=== PATIENT | female | born 1945 | race Caucasian/White ===

== ENCOUNTER → 2018-06-08 12:16 | Outpatient (CLI) | payer OTHER, SELFPAY ==
[2018-06-08 13:50] LABS: Free T4, Direct Thyroxine 1.35 ng/dL (0.78-2.19)
[2018-06-08 14:04] LABS: Thyroid Stimulating Hormone 2.89 uIU/mL (0.47-4.68)
== END ==
PROVIDERS: PCP Internal Medicine; Visit Provider Internal Medicine
DX: E03.9 Hypothyroidism, unspecified (principal)
CPT/HCPCS: 36415; 84439; 84443

== ENCOUNTER 2018-07-01 13:19 | Day surgery (SDC) | payer OTHER, SELFPAY ==
[2018-07-01 13:32] VITALS: BMI 23.3
[2018-07-01 13:41] VITALS: BP 143/68; PULSE 62; RESP 16; TEMP 36.3; O2SAT 100
[2018-07-01] MEDS: SODIUM CHLORIDE 0.9% 1,000 ML 200 ML IV ×2 (13:46→14:40)
[2018-07-01] MEDS: MIDAZOLAM 5 MG/5 ML VIAL IV (14:22)
[2018-07-01] MEDS: fentaNYL 250 MCG/5 ML INJ IV (14:23)
[2018-07-01 14:44] VITALS: BP 93/59; PULSE 63; RESP 16; TEMP 37.6; O2SAT 96
[2018-07-01 15:10] VITALS: BP 98/62; PULSE 72; RESP 16; O2SAT 98
[2018-07-01 15:22] VITALS: BP 112/63; PULSE 56; RESP 16; O2SAT 99
[2018-07-01 15:35] VITALS: BP 100/60; PULSE 56; RESP 16; O2SAT 99
--- NOTE | 2018-07-01 15:49 | SUR.PHASEII ---
Although initial BP 140/70, and subsequent pressures tending to be 100-110/60, the patient voices other than some drowiness feeling okay. Able to both stand and dress self without problems. Told to change positions slowly and consider napping once home.
--- NOTE | 2018-07-01 15:52 | SUR.PHASEII ---
Addendum: Did receive 1500ml of IVF.
--- NOTE | 2018-07-01 16:01 | OP_ITS ---
DATE OF SERVICE: 07/01/2018 PREOP DIAGNOSIS: History of colon polyps. POSTOP DIAGNOSIS: Normal colonoscopy to the cecum. No polyps, tumors, or ulcerations. PROCEDURE: Total colonoscopy to the cecum. SURGEON: Shreyas Coates MD DESCRIPTION OF PROCEDURE: Patient was properly identified during surgical pause, given conscious sedation consisting of 4 mg of Versed and 150 mcg of fentanyl throughout the procedure. The flexible fiber-optic colonoscope inserted transanally to the cecum. Very careful inspection of the entire mucosa revealed no polyps, no tumors, no ulcerations, no other significant abnormalities. The procedure was very well tolerated. Cathy Meyers - /alicja/ doc#: [id number]/job#: [id number] dd: 07/01/2018 14:39:00 dt: 07/01/2018 15:52:00 DICTATING MD/COPIES TO: Shreyas Coates MD COPIES MNE: RASHEED
--- NOTE | 2018-07-08 11:10 | HP_ITS ---
DATE OF SERVICE: 06/30/2018 PREOPERATIVE HISTORY AND PHYSICAL HISTORY OF PRESENT ILLNESS: She's coming in for a screening colonoscopy tomorrow, July 01, 2018. A 73-year-old white female patient with no colorectal symptoms. Denies hematochezia or melena, is coming in for a screening colonoscopy. She does have history with benign colon polyps. She gets a 5-year followup colonoscopy, and that's what's going to happen on this occasion. PAST MEDICAL HISTORY: She does have a history of benign colon polyps in the past. She has had a total thyroidectomy for thyroid cancer back in the 1980s and, of course, take thyroid hormone replacement therapy. Has no other significant medical or surgical history. Denies hypertension, diabetes, or heart disease. CURRENT MEDICATIONS: Thyroxine 112 mcg a day. She takes various over-the- counter, coQ10, fish oil, various list of vitamins. SOCIAL HISTORY: Denies tobacco use. ALLERGIES: NO KNOWN MEDICAL ALLERGIES. REVIEW OF SYSTEMS: Denies exertional chest pain or unusual shortness of breath. GI: As mentioned in HPI. NEUROENDOCRINE: As in the past history, with a history of thyroid cancer approximately 40 years ago. No sign of recurrence. NEUROLOGIC: Negative for strokes, TIAs, or seizures. PHYSICAL EXAMINATION VITAL SIGNS: Blood pressure 140/80, heart rate in the 60s. HEENT: Ears, nose, and throat are normal. NECK: No adenopathy. CHEST: Lungs are clear. HEART: Regular rhythm. No murmur. ABDOMEN: Soft. No organomegaly. No tenderness. RECTAL: Exam is deferred. Will be done at time of colonoscopy. DIAGNOSIS: History of colon polyps, here for repeat screening colonoscopy. Cathy Meyers /alicja/hannah doc#: [id number]/job#: [id number] dd: 06/30/2018 13:03:00 dt: 07/01/2018 04:51:00 DICTATING MD/COPIES TO: Shreyas Coates MD COPIES MNChristine: RASHEED
== END 2018-07-01 15:42 | disposition home or self-care (01) ==
LOC: ENDO 13:20
PROVIDERS: Surgery; Visit Provider Specialist
PROC: 0DJD8ZZ Inspection of Lower Intestinal Tract, Via Natural or Artificial Opening Endoscopic (ICD-10-PCS; CPT 45378; principal; 2018-07-01 14:45)
DX: Z86.010 Personal history of colon polyps (principal)
CPT/HCPCS: G0105; J2250; J3010

== ENCOUNTER → 2019-01-05 15:07 | Outpatient (CLI) | payer OTHER, SELFPAY ==
--- NOTE | 2019-01-05 | DI.RAD.S_ITS ---
PROCEDURE: XR HAND LT MIN 3V INDICATIONS: CONTUSION OF LEFT HAND TECHNIQUE: 4 views of the hand(s) acquired. COMPARISON: None. FINDINGS: Bones: No fractures or dislocations. Carpal bones are normally aligned. No suspicious bony lesions. First CMC and triscaphe joint degeneration. Partially visualized is a radial plate and screw fixation. Chronic ossicle at the tip of the ulnar styloid. Diffuse interphalangeal joint degeneration. Soft tissues: No suspicious soft tissue calcifications. IMPRESSION: First CMC and triscaphe joint degeneration Corticated loose body or fracture fragment adjacent to the ulnar styloid. Dictated by: Jose Jefferson M.D. on 01/05/2019 at 16:25 Approved by: Jose Jefferson M.D. on 01/05/2019 at 16:27
== END ==
PROVIDERS: Visit Provider Physician Assistant
DX: S60.222A Contusion of left hand, initial encounter (principal); M18.12 Unilateral primary osteoarthritis of first carpometacarpal joint, left hand; M19.032 Primary osteoarthritis, left wrist
CPT/HCPCS: 73130

== ENCOUNTER → 2019-01-21 09:20 | Outpatient (CLI) | payer OTHER, SELFPAY | PROVIDERS: PCP Student in an Organized Health Care Education/Training Program; Visit Provider Physician Assistant | DX: M85.851 Other specified disorders of bone density and structure, right thigh (principal); Z78.0 Asymptomatic menopausal state; E07.9 Disorder of thyroid, unspecified | CPT/HCPCS: 77080 ==

== ENCOUNTER → 2019-03-11 15:40 | Outpatient (CLI) | payer OTHER, SELFPAY ==
--- NOTE | 2019-03-11 | DI.US.S_ITS ---
PROCEDURE: US PERIPH VENOUS LOW EXTREM BI INDICATIONS: PAIN IN LOWER EXTREMITIES TECHNIQUE: Real-time imaging, as well as color and pulse Doppler interrogation, were performed of the deep veins of both legs from the inguinal ligament to the popliteal fossa. COMPARISON: None. FINDINGS: Right: The common femoral, femoral and popliteal veins are normally compressible, and free of intraluminal thrombus. Color and pulse Doppler demonstrate normal phasic intravascular flow. There is normal augmentation response to distal compression maneuver. Left: The common femoral, femoral and popliteal veins are normally compressible, and free of intraluminal thrombus. Color and pulse Doppler demonstrate normal phasic intravascular flow. There is normal augmentation response to distal compression maneuver. IMPRESSION: No deep venous thrombosis identified within either the left or right lower extremities. Dictated by: Gianni AGUILAR Interpreted: Duong Cunha MD on 03/11/2019 at 16:58 Approved by: Duong Cunha M.D. on 03/11/2019 at 17:31
== END ==
PROVIDERS: PCP Internal Medicine; Visit Provider Internal Medicine
DX: M79.605 Pain in left leg (principal); M79.604 Pain in right leg
CPT/HCPCS: 93970

== ENCOUNTER → 2019-03-21 08:21 | Outpatient (CLI) | payer OTHER, SELFPAY ==
[2019-03-21 10:01] LABS: BUN Creatinine Ratio 23.8 (6-22); Blood Urea Nitrogen 19 mg/dL (7-17); Estimated Glomerular Filt Rate > 60.0 mL/min (>60)
== END ==
PROVIDERS: PCP Internal Medicine; Visit Provider Internal Medicine
DX: M81.0 Age-related osteoporosis without current pathological fracture (principal)
CPT/HCPCS: 36415; 82565; 84520

== ENCOUNTER → 2020-04-17 14:38 | Outpatient (CLI) | payer MEDICARE, SELFPAY ==
[2020-04-17 15:39] LABS: BUN Creatinine Ratio 19.1 (6-22); Blood Urea Nitrogen 17 mg/dL (7-17); Estimated Glomerular Filt Rate > 60.0 mL/min (>60)
== END ==
PROVIDERS: PCP Internal Medicine; Referring Provider Internal Medicine; Visit Provider Internal Medicine
DX: M81.0 Age-related osteoporosis without current pathological fracture (principal)
CPT/HCPCS: 36415; 82565; 84520

== ENCOUNTER → 2020-05-01 15:00 | Oncology outpatient (ONC) | payer MEDICARE, OTHER, SELFPAY ==
[2019-03-28 14:35] VITALS: BP 158/79; PULSE 71; RESP 16; TEMP 36.6; O2SAT 99
[2019-03-28] MEDS: ZOLEDRONIC ACID 4 MG in SODIUM CHLORIDE 0.9% 100 ML 420 ML IV (14:54)
[2020-05-01] MEDS: ZOLEDRONIC ACID 4 MG in SODIUM CHLORIDE 0.9% 100 ML 315 ML IV (15:36)
[2020-05-01 16:01] VITALS: BP 142/75; PULSE 63; RESP 16; TEMP 36.7; O2SAT 100
== END ==
PROVIDERS: PCP Internal Medicine; Visit Provider Student in an Organized Health Care Education/Training Program
DX: M81.0 Age-related osteoporosis without current pathological fracture (principal)
CPT/HCPCS: 96365; J3489

== ENCOUNTER → 2021-01-18 13:59 | Outpatient (CLI) | payer MEDICARE, SELFPAY | PROVIDERS: PCP Student in an Organized Health Care Education/Training Program; Referring Provider Student in an Organized Health Care Education/Training Program; Visit Provider Student in an Organized Health Care Education/Training Program | DX: M85.851 Other specified disorders of bone density and structure, right thigh (principal); Z78.0 Asymptomatic menopausal state; E07.9 Disorder of thyroid, unspecified | CPT/HCPCS: 77080 ==

== ENCOUNTER → 2023-07-03 09:56 | Outpatient (CLI) | payer OTHER, SELFPAY ==
--- NOTE | 2023-07-03 | DI.RAD.S_ITS ---
Bone Density Report Name: REX AREVALO Age: 78 Sex: Female Ethnicity: White Date of : 1945 Indication: osteopenia; Referring Provider: ROSY EGAN Study: Bone densitometry was performed. Exam Date: July 03, 2023 Accession number: [id number] Bone Density: Region BMD T-score Z-score Classification AP Spine(L1-L4) 1.166 1.1 3.6 Normal Femoral Neck (Left) 0.566 -2.5 -0.4 Osteoporosis Total Hip (Left) 0.747 -1.6 0.3 Osteopenia Femoral Neck (Right) 0.557 -2.6 -0.5 Osteoporosis Total Hip (Right) 0.706 -1.9 -0.1 Osteopenia Total Hip Mean 0.727 -1.8 0.1 Osteopenia World Health Organization criteria for BMD impression classify patients as: Normal (T-score at or above -1.0), Osteopenia (T-score between -1.0 and -2.5), or Osteoporosis (T-score at or below -2.5). 10-year Fracture Risk: FRAX not reported because: Some T-score for Spine Total or Hip Total or Femoral Neck at or below -2.5 Previous Exams: -- Region Exam Age BMD T-score BMD Change BMD Change Date g/cm2 vs Baseline vs Previous -- AP Spine (L1-L4) 07/03/2023 78 1.166 1.1 0.078 (7.2%)# -0.026 (-2.2%)# 01/18/2021 75 1.193 1.3 0.105 (9.6%)* -0.016 (-1.3%) 01/21/2019 73 1.208 1.5 0.120 (11.1%)* 0.120 (11.1%)* 06/16/2016 71 1.088 0.4 Total Hip(Left) 07/03/2023 78 0.747 -1.6 0.011 (1.5%)# -0.005 (-0.6%)# 01/18/2021 75 0.752 -1.6 0.016 (2.2%) 0.009 (1.2%) 01/21/2019 73 0.743 -1.6 0.007 (0.9%) 0.007 (0.9%) 06/16/2016 71 0.736 -1.7 Total Hip(Right) 07/03/2023 78 0.706 -1.9 0.036 (5.4%)# 0.008 (1.2%)# 01/18/2021 75 0.698 -2.0 0.028 (4.2%)* 0.011 (1.6%) 01/21/2019 73 0.687 -2.1 0.017 (2.6%) 0.017 (2.6%) 06/16/2016 71 0.670 -2.2 -- *Denotes significance at 95% confidence level, LSC for AP Spine = 0.022 g/cm2, LSC for Total Hip = 0.027 g/cm2 # Denotes dissimilar scan types or analysis methods Impression: The patient has osteoporosis, based on the Right Femoral Neck T-score. No significant bone loss was observed. Discussion: INCREASED RISK OF FRACTURE. BONE DENSITY IS UNDESIRABLY LOW AT ONE OR MORE SKELETAL SITES, CONSISTENT WITH POSTMENOPAUSAL OSTEOPOROSIS. This patient's lowest T-score meets the World Health Organization's (WHO) criteria for osteoporosis at one or more sites (T-score -2.5 or below). In untreated patients, the risk of osteoporotic fracture increases approximately two-fold for each 1.0 SD decrease in T-score. Low bone density is not the only risk factor for fracture; also consider factors such as patient's age, frailty or poor health, risk of falling, risk of injury, previous osteoporotic fracture, family history of osteoporosis, cigarette smoking, low body weight, etc. Not everyone with low bone mineral density has osteoporosis; osteomalacia and other metabolic bone disorders should also be considered. Patients who have osteoporosis should be evaluated for specific diseases and conditions (secondary causes) that may cause or contribute to bone loss. The [place] [employer] (AACE) and National Osteoporosis Foundation (NOF) recommend pharmacologic intervention for all postmenopausal women whose T-score is in this range. The patient should follow a healthful lifestyle (good nutrition with adequate calcium and vitamin D, and appropriate weight-bearing exercise). Follow-Up: Consider a repeat BMD and Vertebral Fracture Assessment (VFA) exam in 2 years or sooner if medically necessary, to reassess this patient's status. Reported by: SARAH SONI M.D. on 07/03/2023 10:19:00 AM.
== END ==
PROVIDERS: PCP Student in an Organized Health Care Education/Training Program; Referring Provider Student in an Organized Health Care Education/Training Program; Visit Provider Student in an Organized Health Care Education/Training Program
DX: N95.9 Unspecified menopausal and perimenopausal disorder (principal); M81.0 Age-related osteoporosis without current pathological fracture
CPT/HCPCS: 77080